=== PATIENT | female | born 1960 | race Caucasian/White ===

== ENCOUNTER → 2018-10-03 | Outpatient (CLI) | payer OTHER ==
[2018-10-03 09:50] VITALS: BP 112/65; PULSE 81; TEMP 96.4; BMI 33.5
--- NOTE | 2018-10-03 10:36 | P.HPOB ---
History of Present Illness H&P Date: 10/03/18 Chief Complaint: The patient is here for her routine gynecologic exam and mammogram. This is a 58-year-old G2 PII with an LMP of 2009. The patient is here to establish with this office. She believes it has been nearly 10 years since her last pelvic exam. She denies any postmenopausal bleeding. She is complaining of some vaginal dryness with sexual intercourse. She states she has tried lubricants without much success. It has also been about 8 to 10 years since her last mammogram. Review of Systems The patient has gained 12 pounds over the last year. She is now trying to lose weight. She denies respiratory, cardiac, or G.I. problems. 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 History of Any Multi-Drug Resistant Organisms: None Reported Past Surgical History: Cholecystectomy Past Anesthesia/Blood Transfusion Reactions: No Reported Reaction Past Psychological History: No Psychological Hx Reported Smoking Status: Never smoker Past Alcohol Use History: Occasional (2 per week) Past Drug Use History: None Reported Additional History: The patient has been made since 1983. 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 - Past Family History Father Family Medical History: Coronary Artery Disease (CAD), Hypertension, Myocardial Infarction ([place]) Mother Family Medical History: AICD/Pacemaker, Hypertension Additional Family Medical History / Comment(s): Has a pacemaker. Brother(s) Family Medical History: AICD/Pacemaker Medications and Allergies Home Medications Medication Instructions Recorded Confirmed Type Atorvastatin [Lipitor] 20 mg PO DAILY 10/03/18 10/03/18 History Lisinopril-Hctz 10-12.5 mg 1 tab PO DAILY 10/03/18 10/03/18 History [Zestoretic 10-12.5] Naproxen [Naprosyn] 220 mg PO DAILY 10/03/18 10/03/18 History Phentermine HCl [Adipex-P] 37.5 mg PO DAILY 10/03/18 10/03/18 History predniSONE 20 mg PO DAILY 10/03/18 10/03/18 History Allergies Allergy/AdvReac Type Severity Reaction Status Date / Time No Known Allergies Allergy Unverified 10/03/18 09:34 Exam Vital Signs Temp Pulse BP 10/03/18 09:42 96.4 F L 81 112/65 Intake and Output 10/02/18 10/03/18 10/03/18 22:59 06:59 14:59 Other: Weight 88.451 kg Height 5'4", weight 195 pounds, BMI 33.5. This is a well-developed well-nourished white female who is alert and oriented times 3 in no acute distress. HEENT: Within normal limits. NECK: Supple without mass or thyromegaly. CHEST AND LUNGS: Clear to auscultation. HEART: Regular rate and rhythm. BREASTS: Are without mass or discharge. AXILLARY EXAM: Negative for adenopathy. BACK: Negative for CVA tenderness. ABDOMEN: Soft, nontender, without palpable masses. PELVIC EXAM: Normal external genitalia with mild atrophy. Cervix and vagina appear normal with mild atrophy. There is no unusual discharge. There is no evidence of prolapse. The uterus is midposition, nongravid size and nontender. There are no palpable adnexal masses or tenderness. RECTAL EXAM: rectovaginal exam is negative for mass or tenderness and is negative for occult blood. EXTREMITIES: Nontender. IMPRESSION: 1. 58 year old menopausal female with normal gynecologic exam. 2. Vaginal dryness with intercourse secondary to menopause and genital atrophy. PLAN: 1. Pap smear was performed. I have strongly recommended that she returned yearly and have Pap smears as recommended since she has gone many years without cervical screening. 2. Self breast awareness was discussed with the patient. 3. Screening mammogram will be done today. I have recommended yearly mammograms. 4. Trial of Premarin vaginal cream, 1 to 2 g intravaginally 2 times weekly. The prescription will be sent to [facility] in [place]. 5. Osteoporosis prevention was discussed. I have stressed the importance of adequate calcium, vitamin D and regular exercise. Recommended amounts of calcium and vitamin D were also discussed. 6. I recommended screening colonoscopy since she has not had this done. She plans to do Cologuard regularly instead. She states this was just recently done. 7. Weight control was discussed with the patient. I have stressed the importance of good nutrition, adequate fiber in her diet, and regular exercise. 8. She will return one year.
--- NOTE | 2018-10-03 13:09 | MM ---
Reason for exam: screening (asymptomatic). Last mammogram was performed 5 years and 6 months ago. History: Patient is postmenopausal. Physical Findings: A clinical breast exam by your physician is recommended on an annual basis and results should be correlated with mammographic findings. MG Screening Mammo w CAD Bilateral CC and MLO view(s) were taken. Prior study comparison: April 03, 2013, bilateral digital screening mammo w/CAD. November 19, 2009, bilateral digital screening mammogram. There are scattered fibroglandular densities. Although there are new right calcifications they do not meet criteria for a group. 1 year follow up mammogram recommended. ASSESSMENT: Benign, BI-RAD 2 RECOMMENDATION: Routine screening mammogram of both breasts in 1 year.
--- NOTE | 2018-10-04 08:11 | P.PN ---
Progress Note - Text Progress Note Date: 10/04/18 A notification was received that the Premarin vaginal cream prescription was rejected and not covered by her insurance. The prescription was changed to estradiol 1 g intravaginally twice-weekly and I was told by [facility] pharmacy that this should be covered.
== END ==
LOC: WWCWWP 09:11
PROVIDERS: ATTEND Obstetrics & Gynecology
DX: Z12.31 Encounter for screening mammogram for malignant neoplasm of breast (principal)
CPT/HCPCS: 77067

== ENCOUNTER → 2019-06-11 | Outpatient (CLI) | payer OTHER ==
--- NOTE | 2019-06-11 09:56 | BD ---
EXAMINATION TYPE: Axial Bone Density DATE OF EXAM: 06/11/2019 COMPARISON: NONE CLINICAL HISTORY: hyperparathyroidism Height: 5'5 Weight: 205 FRAX RISK QUESTIONS: Secondary Osteoporosis: RISK FACTORS HISTORY OF: Diet low in dairy products/other sources of calcium: y Postmenopausal woman: y Hyperparathyroidism: y MEDICATIONS: Additional Medications: high blood pressure, cholesterol, pain for feet Additional History: EXAM MEASUREMENTS: Bone mineral densitometry was performed using the Department of Health and Human Services System. Bone mineral density as measured about the Lumbar spine is: ----- L1-L4(G/cm2): 1.077 T Score Values are as follows: ----- L2: -0.1 ----- L3: -1.2 ----- L4:-1.3 ----- L1-L4: -0.9 Bone mineral density about the R hip (g/cm2): 0.850 Bone mineral density about the L hip (g/cm2): 0.821 T Score values are as follows: -----R Neck: -1.4 -----L Neck:-1.6 -----R Total: -0.5 -----L Total: -0.4 IMPRESSION: Osteopenia (T Score between -2.5 and -1). There is slightly increased risk of fracture and the patient may be considered for treatment. Re-Screen 2-5 years. NOTE: T-SCORE=SD OF THE YOUNG ADULT MEAN.
== END | disposition home or self-care (01) ==
LOC: RADBDWWP 09:03
PROVIDERS: ATTEND Internal Medicine
DX: M85.89 Other specified disorders of bone density and structure, multiple sites (principal)
CPT/HCPCS: 77080

== ENCOUNTER → 2019-11-12 | Day surgery (SDC) | payer OTHER ==
[2019-11-08 11:01] VITALS: BMI 34.3
[~2019-11-12] MED LIST: LACTATED RINGERS 1,000 ML IV SCH; MIDAZOLAM 2 MG/2 ML VIAL ONE; ONDANSETRON 4 MG/2 ML VIAL IVP ONE; PROPOFOL 10 MG/ML 20 ML VIAL IV ONE; fentaNYL (PF) 50 MCG/ML 2 ML AMP ONE
[2019-11-12 10:39] VITALS: RESP 16; TEMP 97.5
--- NOTE | 2019-11-12 11:27 | P.PCN ---
Date of Procedure: 11/12/19 Description of Procedure: BRIEF HISTORY: Patient is a 59-year-old female presenting for outpatient colonoscopy for evaluation of blood in the stool. Patient reports stool testing that was positive. Denies any abdominal pain, change in bowel habits or family history of colon cancer. No prior colonoscopies reported. PROCEDURE PERFORMED: Colonoscopy. PREOPERATIVE DIAGNOSIS: Blood in stool, no prior colonoscopies. ESTIMATED BLOOD LOSS: Minimal. IV sedation per Anesthesia. PROCEDURE: After informed consent was obtained, the patient, was brought into the endoscopy unit. IV sedation was administered by Anesthesia under continuous monitoring. Digital rectal examination was normal. Initially the Olympus CF-190 flexible video colonoscope was then inserted in the rectum, gradually advanced into the cecum without any difficulty. Careful examination was performed as the scope was gradually being withdrawn. Ileocecal valve and the appendiceal orifice were visualized and appeared normal. Prep was excellent. Mucosa of the cecum, ascending colon, transverse colon, descending colon, sigmoid colon, and rectum appeared normal, with the terminal ileum intubated and also appearing normal. Retroflexion was performed in the rectum and no lesions were seen, low-grade internal hemorrhoids noted. The patient tolerated the procedure well. IMPRESSION: Normal-appearing colon from rectum to cecum and normal-appearing terminal ileum. Low-grade internal hemorrhoids. RECOMMENDATIONS: Findings of this examination were discussed with the patient and her . Okay to resume diet. Okay to resume medications. Would recommend repeat colonoscopy in 10 years or sooner if signs or symptoms which warrant further evaluation develop.
[2019-11-12 11:47] VITALS: BP 134/79; PULSE 84
--- NOTE | 2019-11-15 09:41 | CDI ---
Date: 11/15/19 CDS/[employer] Name: Carlotta Macdonald Phone: If any questions, call Zoila Coello Auto Body Detailer at [phone] Patient Name: Sommer Jefferson Admit Date: 11/12/19 Discharge Date: 11/12/19 ATTENTION: The [facility] Coding Staff appreciate your assistance in clarifying documentation. Please respond to the clarification below the line at the bottom and electronically sign. The [facility] Coding staff will review the response and follow-up if needed. Please note: Queries are made part of the Legal Health Record. If you have any questions, please contact the Auto Body Detailer. Dear _Ale, Could you please document if the blood in stool was related to the internal hemorrhoids, or were the hemorrhoids an incidental finding? Thank you for your kind consideration. Hemorrhoids were and incidental finding MTDD
== END ==
LOC: ORWHC2ENDO 10:21
PROVIDERS: ATTEND Internal Medicine
DX: K92.1 Melena (principal); K64.8 Other hemorrhoids; I10 Essential (primary) hypertension; E78.5 Hyperlipidemia, unspecified; Z79.899 Other long term (current) drug therapy; Z90.49 Acquired absence of other specified parts of digestive tract
CPT/HCPCS: 45378; J2250; J2405; J3010; J2704